=== PATIENT | female | born 1965 | race Two or more races ===

== ENCOUNTER 2017-06-28 14:14 | Day surgery (SDC) | payer OTHER ==
[~2017-06-28] VITALS: Ht 165.1 cm; Wt 72.7 kg
[2017-06-28 14:58] VITALS: Ht 165.1 cm; Wt 72.7 kg
[2017-06-28] MEDS ORDERED: LIDOCAINE 4% SOLUTION 50 ML BTL ONE (15:44)
[2017-06-28 15:51] VITALS: BP 141/72; PULSE 70; RESP 15
--- NOTE | 2017-06-28 16:18 | OPPN ---
Date/Time of Note Date/Time of Note DATE: 06/28/17 TIME: 16:13 Operative Report Free Text/Dictation Dr. Kavon Kilpatrick this patient has severe gastritis with retained food particles possible gastroparesis rule out diabetes mellitus recommend further testing on this issue meanwhile I have placed her omeprazole 20 milligrams per day Wait for biopsy report follow-up as outpatient in 2 Preoperative Diagnosis Abdominal pain epigastric pain history of ulcer disease Postoperative Diagnosis Gastritis in the fundus body and antrum and foot particles and fluid in the stomach We will out gastroparesis rule out diabetes Wait for biopsy rule out H. pylori Operation/Procedure Performed EGD random biopsy of stomach moderate gastritis Provider: PHILIP HARRIS MD Anesthesia Type: moderate sedation (Versed 4 mg/fentanyl 100 mcg moderate sedation time 15 minute) Estimated blood loss: none Transfusion Required: no Specimens Random gastric biopsy for gastritis Grafts/Implants: none Complications: no PHILIP HARRIS MD Jun 28, 2017 16:18
[2017-06-28] MEDS ORDERED: MIDAZOLAM 1 MG/ML 2 ML INJ ONE ×2 (16:22)
[2017-06-28] MEDS ORDERED: FENTAnyl 50 MCG/ML VIAL ONE (16:22)
[2017-06-28 16:35] VITALS: BP 113/74; PULSE 65; RESP 18
--- NOTE | 2017-06-28 19:47 | GILP ---
DATE OF PROCEDURE: 06/28/2017 PREOPERATIVE DIAGNOSIS: 1. History of abdominal pain. 2. Epigastric pain. 3. Reflux symptoms. 4. Past history of ulcer disease. PROCEDURE PERFORMED: 1. Esophagogastroduodenoscopy. 2. Random biopsy of the stomach. POSTOPERATIVE DIAGNOSIS: 1. Severe gastritis. 2. Retained food particles in the stomach. 3. No ulcer seen. 4. No esophagitis. DESCRIPTION OF PROCEDURE: After obtaining informed consent, patient was sedated, monitored on oximetry, EKG, and blood pressure. Posterior pharynx anesthetized with 4 percent xylocaine gargle and very carefully advanced the upper endoscope after sedating the patient with 4 mg of IV Versed and 100 mcg of fentanyl. Examination of the esophagus from cricopharyngeus to GE junction is normal. In the stomach there were retained food particles and fluid. This was suctioned off, as well as I could, and body and antrum had quite severe inflammation, also in the fundus. Severe gastritis noted. Random biopsies were done. Duodenal bulb, 1st and 2nd part, unremarkable. Scope was withdrawn. Patient had no complications. PLAN: 1. Will be to await for biopsy report. 2. Start her on omeprazole 20 mg daily. 3. Consider to evaluate if she has any diabetes. 4. Recommend to follow up in 2 weeks in my office. I may place her on Reglan 10 mg t.i.d. if she does not improve. Dictated By: Tiburcio Stroud MD /[email or web address]/amish /Document#: [id number] CC: Tiburcio Stroud MD; TG ROSENBERG MD;*EndCC* MTDD
== END 2017-06-28 18:56 | disposition home or self-care (01) ==
LOC: GIL 14:14
PROVIDERS: ATTEND Internal Medicine
DX: K29.60 Other gastritis without bleeding (principal); E11.9 Type 2 diabetes mellitus without complications
CPT/HCPCS: 43239; 84703; 88305; 88312; J2250; J3010; Z7610